=== PATIENT | female | born 1995 | race Caucasian/White ===

== ENCOUNTER 2018-11-21 13:54 | Emergency (ER) | payer MEDICAID ==
[~2018-11-21] VITALS: Ht 157.5 cm; Wt 50.8 kg
[2018-11-21 17:46] VITALS: BP 131/74
== END 2018-11-21 17:46 | disposition home or self-care (01) ==
LOC: ED 13:54
DX: O9A.212 Injury, poisoning and certain other consequences of external causes complicating pregnancy, second trimester (principal); S39.91XA Unspecified injury of abdomen, initial encounter; Z3A.26 26 weeks gestation of pregnancy; W18.30XA Fall on same level, unspecified, initial encounter; Y93.89 Activity, other specified; Y92.89 Other specified places as the place of occurrence of the external cause; Y99.8 Other external cause status